=== PATIENT | male | born 1945 | race Caucasian/White ===

== ENCOUNTER 2020-10-14 15:02 | Inpatient (IN) | payer OTHER ==
[~2020-10-14] VITALS: Ht 180.3 cm; Wt 102.6 kg
[~2020-10-14 15:02] MED LIST: DOXY100 PO; METO50ER PO; METR59TL TOP; VALSARTAN-HCTZ1 EAC3 PO
[2020-10-14 15:47] LABS: BASOPHILS ABSOLUTE AUTO 0.01 K/mm3 (0.00-0.23); BASOPHILS PERCENT AUTO 0 % (0-2); EOSINOPHILS PERCENT AUTO 0 % (0-6); Hematocrit 43.5 % (37.0-53.0); Hemoglobin 14.8 g/dL (13.5-17.5); IMMATURE GRAN ABSOLUTE AUTO 0.05 K/mm3 (0.00-0.10); IMMATURE GRAN PERCENT AUTO 1 % (0-1); LYMPHOCYTES ABSOLUTE AUTO 0.73 K/mm3 (0.84-5.20); LYMPHOCYTES PERCENT AUTO 10 % (21-46); MONOCYTES ABSOLUTE AUTO 0.27 K/mm3 (0.16-1.47); MONOCYTES PERCENT AUTO 4 % (4-13); Mean Corpuscular HGB 29.5 pg (26.0-34.0); Mean Corpuscular Volume 87 fL (80-100); Mean Platelet Volume 11.2 fL (9.1-12.4); NEUTROPHILS ABSOLUTE AUTO 6.28 K/mm3 (1.96-9.15); NEUTROPHILS PERCENT AUTO 86 % (41-73); Platelet Count 144 K/mm3 (150-400); RDW Coefficient Variation 13.7 % (11.7-14.2); RDW Standard Deviation 43.6 fL (35.1-46.3); Red Blood Cell Count 5.01 M/mm3 (4.30-5.90); White Blood Cell Count 7.34 K/mm3 (4.00-11.30)
[2020-10-14 15:57] LABS: Alanine Aminotransfer (ALT/SGP 211 U/L (12-78); Albumin, Blood 2.7 g/dL (3.4-5.0); Albumin/Globulin Ratio 0.6 (0.8-1.8); Alk Phos 43 U/L (50-136); Anion Gap 10 mmol/L (6-16); Aspartate Aminotrans (AST/SGOT 768 U/L (12-37); Bilirubin, Total 0.7 mg/dL (0.1-1.0); Blood Urea Nitrogen 17 mg/dL (8-24); Bun/Creatinine Ratio 14.8 (12.0-20.0); CO2, Blood 25 mmol/L (21-32); Calcium, Blood 8.1 mg/dL (8.5-10.1); Chloride, Blood 106 mmol/L (98-108); Creatinine, Blood 1.15 mg/dL (0.60-1.20); Globulin, Blood 4.4 g/dL (2.2-4.0); Glomerular Filtration Rate >60 (60-); Glucose, Blood 117 mg/dL (70-99); Potassium, Blood 3.3 mmol/L (3.5-5.5); Sodium, Blood 141 mmol/L (136-145); Total Protein, Blood 7.1 g/dL (6.4-8.2)
[2020-10-14] MEDS ORDERED: ATOR40TA PO (16:26)
[2020-10-14] MEDS ORDERED: TAMSULOSIN HCL0.4 M1 PO (16:27)
[2020-10-14] MEDS ORDERED: METFORMIN HCL500 M3 PO (16:28)
[2020-10-14] MEDS ORDERED: INSUGL100V SC (16:28)
[2020-10-14] MEDS ORDERED: ALLO300 PO (16:28)
[2020-10-14] MEDS ORDERED: LOSARTAN POTAS100 MG PO (16:29)
[2020-10-14] MEDS ORDERED: MONT10T PO (16:30)
[2020-10-14] MEDS ORDERED: ACTOS30 MG PO (16:31)
[2020-10-14] MEDS ORDERED: AMLODIPINE BES2.5 MG PO (16:33)
[2020-10-14] MEDS ORDERED: METFORMIN HCL500 MG PO (17:06)
[2020-10-14] MEDS ORDERED: METO100ER PO (17:15)
[2020-10-14] MEDS ORDERED: Multivitamin1 EAC1 PO (17:16)
[2020-10-14] MEDS ORDERED: ZYRTEC10 M2 PO (17:16)
[2020-10-14] MEDS ORDERED: Calcium Carbon500 MG PO (17:17)
[2020-10-14] MEDS ORDERED: POTASSIUM PO (17:21)
--- NOTE | 2020-10-15 04:24 | NUR ---
SHIFT SUMMARY- PT. NEW ADMIT FROM ED. COVID POS. A&O, VERY WEAK, ON BEDREST AT THIS TIME. PT. ON 3L NC, 2L IS BASELINE. PT. WITH FEVER, ELEVATED HR, AND TACHYPNEIC UPON ARRIVAL TO FLOOR WITH SOME IMPROVMENT T/O THE NIGHT. TYLENOL GIVEN IN ED AND SCHEDULED MEDS GIVEN ON THIS UNIT PER EMAR WITH GOOD EFFECT, TOLERATED WELL. NO COMPLAINTS OF PAIN DURING THE NIGHT. INCONT, ATTENDS IN PLACE. PT. DENIES NEEDS. RESTING QUIETLY IN BED. CALL LIGHT WITHIN REACH AND SIDE RAILS UPX2. WILL CONT TO MONITOR.
[2020-10-15 05:29] LABS: BASOPHILS ABSOLUTE AUTO 0.01 K/mm3 (0.00-0.23); BASOPHILS PERCENT AUTO 0 % (0-2); EOSINOPHILS PERCENT AUTO 0 % (0-6); Hematocrit 45.5 % (37.0-53.0); Hemoglobin 15.5 g/dL (13.5-17.5); IMMATURE GRAN ABSOLUTE AUTO 0.05 K/mm3 (0.00-0.10); IMMATURE GRAN PERCENT AUTO 1 % (0-1); LYMPHOCYTES ABSOLUTE AUTO 0.79 K/mm3 (0.84-5.20); LYMPHOCYTES PERCENT AUTO 11 % (21-46); MONOCYTES ABSOLUTE AUTO 0.29 K/mm3 (0.16-1.47); MONOCYTES PERCENT AUTO 4 % (4-13); Mean Corpuscular HGB 29.9 pg (26.0-34.0); Mean Corpuscular HGB Conc 34.1 g/dL (31.5-36.5); Mean Corpuscular Volume 88 fL (80-100); Mean Platelet Volume 10.8 fL (9.1-12.4); NEUTROPHILS ABSOLUTE AUTO 6.13 K/mm3 (1.96-9.15); NEUTROPHILS PERCENT AUTO 84 % (41-73); Platelet Count 142 K/mm3 (150-400); RDW Coefficient Variation 13.7 % (11.7-14.2); RDW Standard Deviation 44.3 fL (35.1-46.3); Red Blood Cell Count 5.18 M/mm3 (4.30-5.90); White Blood Cell Count 7.27 K/mm3 (4.00-11.30)
[2020-10-15 06:02] LABS: Anion Gap 10 mmol/L (6-16); Blood Urea Nitrogen 16 mg/dL (8-24); Bun/Creatinine Ratio 12.9 (12.0-20.0); CO2, Blood 26 mmol/L (21-32); Calcium, Blood 8.5 mg/dL (8.5-10.1); Chloride, Blood 105 mmol/L (98-108); Creatinine, Blood 1.24 mg/dL (0.60-1.20); Glomerular Filtration Rate >60 (60-); Glucose, Blood 74 mg/dL (70-99); Magnesium, Blood 2.2 mg/dL (1.6-2.4); Potassium, Blood 3.1 mmol/L (3.5-5.5); Sodium, Blood 141 mmol/L (136-145)
--- NOTE | 2020-10-15 16:31 | NUR ---
PTS O2 SATS THIS AFTERNOON THE PTS O2 SATS AFTER GETTING UP TO THE BATHROOM DROPPED INTO THE LOW 80% ON 4.5L/MIN O2, AFTER RESTING THE PTS O2 BRIEFLY CAME BACK UP TO 89% RECHECKED APROX 1/2 HOUR LATER THE PT WAS BACK DOWN TO 83% ON 3L/MIN, THE PTS O2 WAS ADJUSTED UP SLOWLY TO 7L/MIN PTS O2 SATS UP TO 88%, THE PT WAS INSTRUCTED TO LAY ON HIS SIDE HIS O2 SATS REMAINED 88-90%, A CALL WAS MADE TO DR. JUAREZ AN ORDER TO TRANSFER THE PT TO ICU WAS GIVEN, CHARGE NURSE CHING WAS NOTIFIED OF THE TRANSFER ORDER
--- NOTE | 2020-10-15 17:16 | NUR ---
PTS O2 SAT'S RECOMMENDED BY THE RT SHARON AND DRAWING IN MACHINE TENDER THE PT WAS PUT IN THE PRONE POSITION HE COULD TOLERATE, HIS O2 SAT'S THEN IMPROVED AND O2 WAS TURNED DOWN TO 4L/MIN THE PTS O2 SAT'S ARE STEADY SO FAR @ 90-92%,
--- NOTE | 2020-10-15 17:44 | NUR ---
PT IS A/OX3, PLEASANT AND COOPERATIVE, THE PT AFTER LYING PRONE O2 SATS STAYED IN THE LOW 90'S DR. JUAREZ CANCELED TRANSFER TO ICU AT THIS TIME. THE PT IS UP IN BED FOR DINNER SUPINE O2 SATS AGAIN DROPPED TO 85 % O2 WAS TURNED UP TO 6L/MIN WHILE THE PT IS EATING DINNER, THE PT REPORTED SOME MILD CHEST PAIN WITH DEEP BREATHS, OTHERWISE DENIES PAIN, THE PT WAS PLACED ON CONTINUOS BIOX AT THIS TIME, PT IS A 1 PERSON ASSIST TRANSFER TO THE BATHROOM, CALL LIGHT IN REACH, WILL CONTINUE TO MONITOR AND ASSESS FOR CHANGES
--- NOTE | 2020-10-16 01:28 | NUR ---
PT OXYGEN NEEDS HAVE BEEN INCREASING DURING THE NIGHT. AT START OF SHIFT, PT WAS ON 7L AND SATTING 84%. HE WAS INCREASED TO 10L, CHANGED TO A HIGH FLOW NASAL CANNULA, AND INCREASED TO 89-90%. WHEN PT WAS UNABLE TO MAINTAIN SATS > 88%, HE WAS INCREASED TO 13L. AT 0000, WHEN PT MAINTAINED AT 87%, HE WAS AGAIN INCREASED TO 15L VIA HIGH FLOW NC. AT 0115, PT WAS PUT ON AN AIRVO AT 40L AND 93% FIO2, CURRENTLY SATTING 90-91%. WILL CONTINUE TO MONITOR.
--- NOTE | 2020-10-16 05:39 | NUR ---
TRANSFER TO ICU PT CONTINUED TO DESAT ON AIRVO. RT INCREASED TO 60L AND 94% FIO2, PT SUSTAINING BETWEEN 86-87%. HOSPITALIST DR MOTT INFORMED, AND DECIDED TO TRANSFER PT TO ICU FOR A V60 BIPAP. PT WAS INFORMED AND AGREED. REPORT GIVEN TO TYREE BOB, IN ICU. PT TRANSFERED TO ICU 06.
--- NOTE | 2020-10-16 07:45 | NUR ---
ASSUMED CARE: PT RESTING QUIETLY AT THIS TIME, ON CPAP WITH PRESSURE AT 8 AND 55% FIO2. NSR IN 70S AT THIS TIME. NO ACUTE NEEDS OR CONCERNS.
--- NOTE | 2020-10-16 07:49 | NUR ---
PT TO ICU 6 VIA [facility] WITH MEDICAL FLOOR RN AND FANCY PACKER @ APPROX 0530. PT ON 15L PER NRB, A&O x4, PLACED ON CPAP PRESSURE OF 8 AND FIO2 100% UPON ARRIVAL TO UNIT. MONITOR SHOWS SINUS RHYTHM WITH HR 70'S, HYPERTENSIVE WITH SBP 140'S-150'S. PT REPORTS INCONTINENCE OF BOWEL AND BLADDER, ATTENDS IN PLACE. PT TOLERATES BREIF BREAK FROM CPAP FOR SIPS OF WATER. CALL LIGHT WITHIN REACH.
--- NOTE | 2020-10-16 10:13 | NUR ---
PT FINISHED BREAKFAST AND BEGAN TO DESAT INTO 80S AND WAS NOT ABLE TO RECOVER. WAS ON BREAK FOR AN HOUR. CPAP REPLACED WITH PRESSURE AT 8 AND FIO2 AT 55%. BEDBATH COMPLETED WITH CPAP IN PLACE. ATTEMPTED 2ND IV START TO LEFT HAND WITH NO SUCCESS. WILL MAINTAIN CURRENT IV AT THIS TIME.
--- NOTE | 2020-10-16 18:23 | NUR ---
SHIFT SUMMARY: PT HAS BEEN ON AIRVO MOST OF THE SHIFT. DANGLING AT THIS TIME, TRIPOD ABLE WITH IMPROVEMENT NOTED IN FIO2 ON AIRVO. PT CURRENTLY 60L AND 74% FIO2. THIS EVENING, PT BECAME HYPERTENSIVE WITH GRADUAL INCREASE IN BP. CALL TO DR BLACKMAN AND RECIEVED ONE TIME ANTIHYPERTENSIVE ORDERS. NO FURTHER NEEDS OR CONCERNS AT THIS TIME.
--- NOTE | 2020-10-16 21:00 | NUR ---
ASSUMPTION OF CARE PT RESTING IN BED, ORIENTED x4, ON AIRVO 60L AND FIO2 75% TO MAINTAIN O2 SATURATIONS> 90%. MONITOR SHOWS SINIUS RHYTHM, PT HYPERTENSIVE, BP MEDICATIONS ADMINISTERED ON PREVIOUS SHIFT, WILL MONITOR FOR NEED FOR ADDITIONAL INTERVENTIONS. PT TOLERATING PO INTAKE, SWALLOWS PILLS WHOLE WITH WATER, USES URINAL AT BEDSIDE INDEPENDENTLY. ATTENDS IN PLACE. CALL LIGHT WITHIN REACH, PT USING APPROPRIATELY.
--- NOTE | 2020-10-17 06:31 | NUR ---
SHIFT SUMMARY NO ACUTE CHANGES THIS SHIFT. PT SLEPT T/O MOST OF NIGHT, REMAINS AROUSABLE TO VERBAL STIMULI, ORIENTED x4. ON AIRVO 60L AND FIO2 95% WHILE AWAKE AND TOLERATES CPAP 8 FIO2 90-100% WHILE SLEEPING TO MAINTAIN O2 SATURATIONS> 90%. MONITOR SHOWS SINUS RHYTHM HR 70'S-80'S, PT HYPERTENSIVE WITH SBP 140'S-150'S. PT VOIDS INDEPENDENTLY WITH URNIAL AT BEDSIDE. TWO LARGE LOOSE TO LIQUID BM THIS SHIFT. PT TOLERATING PO INTAKE. CALL LIGHT WITHIN REACH, PT USING APPROPRIATELY.
--- NOTE | 2020-10-17 07:30 | NUR ---
ASSUMED CARE: PT SITTING UPRIGHT IN CHAIR, AIRVO IN PLACE AT 60L AND 100% FIO2. RT AT BEDSIDE AT THIS TIME. NO ACUTE NEEDS OR DISTRESS AT THIS TIME.
--- NOTE | 2020-10-17 08:30 | NUR ---
PT SITTING UPRIGHT IN CHAIR AT THIS TIME. AIRVO IN PLACE. PT DID NOT WANT TO STAY IN CHAIR ANYMORE BECAUSE HE SAID IT HURT HIS NECK SO HE GOT HIMSELF BACK TO BED. RN ENTERED ROOM WITH BREAKFAST AND MADE PT DANGLE. PT AGREEABLE TO THIS. EATING BREAKFAST AT THIS TIME.
--- NOTE | 2020-10-17 10:30 | NUR ---
PT TRIPODED AFTER BREAKFAST AND AIRVO WAS TITRATED DOWN TO 61% FIO2. TOLERATING WELL WITH SATS IN LOW 90S.
--- NOTE | 2020-10-17 12:30 | NUR ---
PT FINISHED LUNCH AND WAS ASKED TO TRIPOD. FIO2 TITRATED DOWN TO 49%. PT TOLERATING WELL WITH SATS LOW 90S
--- NOTE | 2020-10-17 14:30 | NUR ---
PT LAYED DOWN IN BED WITH DESATURATION OCCURING IN MID 80S WHILE ON BACK. HE RECOVERED AFTER SEVERAL MINUTES WITH SATURATIONS BACK IN THE LOW 90S.
--- NOTE | 2020-10-17 15:19 | NUR ---
DISCUSSED PT'S CASE WITH DR HERRING. ONLY WISHES FOR PULM CONSULT IF PT DECLINES AT THIS TIME. PT TOLERATING AIRVO AT 49%. OT IN ROOM WITH PT AT THIS TIME. NO ACUTE NEEDS OR CONCERNS.
--- NOTE | 2020-10-17 18:49 | NUR ---
SHIFT SUMMARY: PT CURRENTLY SATTING HIGH 80S ON 60L AIRVO WITH 61% FIO2. WORKED WITH PT/OT TODAY AND TOLERATED ACTIVITY. ONLY NEEDED CPAP WHEN HE SAID AIRVO WAS IRRITATING HIS NOSE. PLAN TO CONTINUE TITRATING O2 ABLE. NO FURTHER NEEDS OR CONCERNS AT THIS TIME.
--- NOTE | 2020-10-17 19:30 | NUR ---
ASSUMED CARE PT AWAKE AND ALERT. ON AIRVO 60L AND FIO2 65%. LUNG SOUNDS CLEAR BUT DIMINISHED IN BASES. DENIES PAIN OR DISCOMFORT. USING URINAL AT BEDSIDE INDEPENDENTLY. RESPOSITIONS INDEPENDENTLY.
--- NOTE | 2020-10-17 20:00 | NUR ---
PT ENCOURAGED TO PRONE AND REFUSES. PT ASSISTED TO TRIPOD. PT. ABLE TO REPOSITION SELF WITH MINIMAL ASSISTANCE. EXERTIONAL SOB NOTED AND PT. SPO2 DECREASED TO 83% UPON EXERTION. INCREASED TO 93% UPON TRIPOD.
--- NOTE | 2020-10-17 20:20 | NUR ---
ASSISTED PT BACK TO BED, HOB ELEVATED, PT SPO2 DECREASED TO 84% UPON EXERTION, REQUIRES SEVERAL MINUTES IN BAED AFTER EXERTION TO INCREASE SPO2> 90%.
[2020-10-18 04:53] LABS: BASOPHILS ABSOLUTE AUTO 0.01 K/mm3 (0.00-0.23); BASOPHILS PERCENT AUTO 0 % (0-2); EOSINOPHILS PERCENT AUTO 0 % (0-6); Hematocrit 40.5 % (37.0-53.0); Hemoglobin 13.6 g/dL (13.5-17.5); IMMATURE GRAN ABSOLUTE AUTO 0.03 K/mm3 (0.00-0.10); IMMATURE GRAN PERCENT AUTO 1 % (0-1); LYMPHOCYTES ABSOLUTE AUTO 0.73 K/mm3 (0.84-5.20); LYMPHOCYTES PERCENT AUTO 11 % (21-46); MONOCYTES ABSOLUTE AUTO 0.37 K/mm3 (0.16-1.47); MONOCYTES PERCENT AUTO 6 % (4-13); Mean Corpuscular HGB 29.4 pg (26.0-34.0); Mean Corpuscular HGB Conc 33.6 g/dL (31.5-36.5); Mean Corpuscular Volume 88 fL (80-100); Mean Platelet Volume 10.9 fL (9.1-12.4); NEUTROPHILS ABSOLUTE AUTO 5.34 K/mm3 (1.96-9.15); NEUTROPHILS PERCENT AUTO 82 % (41-73); Platelet Count 169 K/mm3 (150-400); RDW Coefficient Variation 13.1 % (11.7-14.2); RDW Standard Deviation 41.9 fL (35.1-46.3); Red Blood Cell Count 4.63 M/mm3 (4.30-5.90); White Blood Cell Count 6.48 K/mm3 (4.00-11.30)
[2020-10-18 05:48] LABS: Alanine Aminotransfer (ALT/SGP 245 U/L (12-78); Albumin, Blood 2.3 g/dL (3.4-5.0); Albumin/Globulin Ratio 0.6 (0.8-1.8); Alk Phos 57 U/L (50-136); Anion Gap 6 mmol/L (6-16); Aspartate Aminotrans (AST/SGOT 287 U/L (12-37); Bilirubin, Total 0.6 mg/dL (0.1-1.0); Blood Urea Nitrogen 24 mg/dL (8-24); Bun/Creatinine Ratio 25.5 (12.0-20.0); CO2, Blood 28 mmol/L (21-32); Calcium, Blood 8.1 mg/dL (8.5-10.1); Chloride, Blood 106 mmol/L (98-108); Creatinine, Blood 0.94 mg/dL (0.60-1.20); Globulin, Blood 3.9 g/dL (2.2-4.0); Glomerular Filtration Rate >60 (60-); Glucose, Blood 142 mg/dL (70-99); Potassium, Blood 3.7 mmol/L (3.5-5.5); Sodium, Blood 140 mmol/L (136-145); Total Protein, Blood 6.2 g/dL (6.4-8.2)
--- NOTE | 2020-10-18 05:51 | NUR ---
SHIFT SUMMARY PT A&OX4, REMAINS ON HIGH FLOW N/C. 60 L AND INCREASED TO 78% FIO2 TO MAINTAIN SPO2 > 90%. PT UP TO COMMODE WITH ASSIST DURING SHIFT AND SPO2 DECREASED TO 83%. WORK OF BREATHING INCREASED SLIGHTLY. PT. BACK TO BED AND AFTER SEVERAL MINUTES ABLE TO MAINTAIN SPO2 > 90%. PT STATES HE FEELS HIS BREATHING IS BETTER AND FEELS IF HE CAN TAKE DEEPER BREATHS WITH LESS EFFORT. PT CONTINUES TO INDEPENDENTLY USE URINAL AT BEDSIDE.
--- NOTE | 2020-10-18 08:00 | NUR ---
REPORT TAKEN FROM TYREE BOLES. ASSUMED CARE @ 0700. PT LAYING IN SEMI-FOWLERs IN BED. C-PAP IN PLACE @ SHIFT CHANGE. PT CHANGED TO AIRVO BY RT @ 60L 79%. PT A&O X3, ABLE TO FOLLOW DIRECTIONS, PT ABLE TO ASSIST W/ ADLs. STANDING & TRANSFERRING. USING URINAL. INDEPENDENT W/ MEALS. ABLE TO SHIFT HIPS & REPOSITION IN BED. PT SPEAKING IN FULL SENTENCES. LS CLEAR THROUGHOUT. PRODUCTIVE COUGH W/ WHITE SPUTUM. PT DESATS W/ MINIMAL EXERTION, SATS DEC TO LOW 80s, NO INC WORK OF BREATHING. PT RECOVERS IN LESS THAN 5 MIN. O2 SATS MID 90s. BP STABLE. SINUS RHYTHM, HR 80s. PT UP TO CHAIR W/ STANDBY ASSIST. PLAN FOR PT, OT TODAY. WILL CONTINUE TO ENCOURAGE ACTIVITY TOLERATED.
--- NOTE | 2020-10-18 17:08 | NUR ---
SHIFT SUMMARY: PT LAYING SUPINE. CPAP IN PLACE @ 8/70%. PT HAS BEEN ALTERNATING W/ AIRVO @60L & 79% FiO2. PT TOLERATES BOTH WELL. LS CONTINUE TO BE CLEAR THROUGHOUT. PRODUCTIVE COUGH W/ WHITE SPUTUM. CONTINUES TO DESAT W/ EXERTION. RECOVERS WELL. PT WORKED W/ PT TODAY, UP TO CHAIR FOR APPROX 3HRS. TOLERATED WELL. VS STABLE. WILL CONTINUE TO MONITOR UNTIL REPORT TO ONCOMING RN.
[2020-10-19 04:35] LABS: BASOPHILS ABSOLUTE AUTO 0.01 K/mm3 (0.00-0.23); BASOPHILS PERCENT AUTO 0 % (0-2); EOSINOPHILS PERCENT AUTO 0 % (0-6); Hematocrit 41.3 % (37.0-53.0); Hemoglobin 14.1 g/dL (13.5-17.5); IMMATURE GRAN ABSOLUTE AUTO 0.06 K/mm3 (0.00-0.10); IMMATURE GRAN PERCENT AUTO 1 % (0-1); LYMPHOCYTES ABSOLUTE AUTO 0.92 K/mm3 (0.84-5.20); LYMPHOCYTES PERCENT AUTO 9 % (21-46); MONOCYTES ABSOLUTE AUTO 0.32 K/mm3 (0.16-1.47); MONOCYTES PERCENT AUTO 3 % (4-13); Mean Corpuscular HGB 29.6 pg (26.0-34.0); Mean Corpuscular HGB Conc 34.1 g/dL (31.5-36.5); Mean Corpuscular Volume 87 fL (80-100); Mean Platelet Volume 10.6 fL (9.1-12.4); NEUTROPHILS ABSOLUTE AUTO 8.52 K/mm3 (1.96-9.15); NEUTROPHILS PERCENT AUTO 87 % (41-73); Platelet Count 184 K/mm3 (150-400); RDW Coefficient Variation 12.8 % (11.7-14.2); RDW Standard Deviation 40.8 fL (35.1-46.3); Red Blood Cell Count 4.77 M/mm3 (4.30-5.90); White Blood Cell Count 9.83 K/mm3 (4.00-11.30)
[2020-10-19 04:55] LABS: Alanine Aminotransfer (ALT/SGP 253 U/L (12-78); Albumin, Blood 2.4 g/dL (3.4-5.0); Albumin/Globulin Ratio 0.6 (0.8-1.8); Alk Phos 63 U/L (50-136); Anion Gap 5 mmol/L (6-16); Aspartate Aminotrans (AST/SGOT 196 U/L (12-37); Bilirubin, Total 0.6 mg/dL (0.1-1.0); Blood Urea Nitrogen 23 mg/dL (8-24); Bun/Creatinine Ratio 26.2 (12.0-20.0); CO2, Blood 29 mmol/L (21-32); Calcium, Blood 8.2 mg/dL (8.5-10.1); Chloride, Blood 106 mmol/L (98-108); Creatinine, Blood 0.88 mg/dL (0.60-1.20); Globulin, Blood 4.1 g/dL (2.2-4.0); Glomerular Filtration Rate >60 (60-); Glucose, Blood 115 mg/dL (70-99); Potassium, Blood 3.6 mmol/L (3.5-5.5); Sodium, Blood 140 mmol/L (136-145); Total Protein, Blood 6.5 g/dL (6.4-8.2)
--- NOTE | 2020-10-19 07:14 | NUR ---
SHIFT SUMMARY NO ACUTE CHANGES THIS SHIFT, PT RESTED WELL T/O NIGHT, AROUSES TO VERBAL STIMULI AND ORIENTED x4. ON AIRVO 60L, FIO2 INCREASED TO 90% WHILE SLEEPING TO MAINTAIN OXYGEN SATURATIONS> 90%. MONITOR SHOWS SINUS RHYTHM, HR 60'S-70'S, HYPERTENSION NOTED WITH SBP 150'S-160'S. PT TOLERATES PO INTAKE, SWALLOWS PILLS WHOLE WITH WATER, VOIDS IN URINAL AT BEDSIDE INDEPENDENTLY. NO BM THIS SHIFT. PT REPOSITIONS SELF IN BED AND USES BED CONTROLS INDEPENDENTLY. CALL LIGHT WITHIN REACH, PT USING APPROPRIATELY.
--- NOTE | 2020-10-19 08:29 | NUR ---
CARE ASSUMED CARE AND REPORT ASSUMED FROM PAULINO CLEMENTS. PT SLEEPING UPON ENTRY INTO ROOM, BUT EASILY AWAKENS. IS ABLE TO SIT UP AND MOVE HIMSELF TO THE SIDE OF THE BED WITHOUT ANY ASSISTANCE. LUNG SOUNDS CLEAR THROUGHOUT BUT DIMINISHED. HE IS A/O X 3, CALM AND COOPERATIVE. AFEBRILE THIS MORNING. NSR, HR 70S. BP ELEVATED THIS AM WITH SBP 160S; MEDICATIONS GIVEN. AIRVO 60L, 90% WITH SPO2 89-93%. VOIDS IN URINAL WITH NO ASSISTANCE. TKO BAGS CHANGED; ANBX NOW INFUSING. EATING BREAKFAST AT THIS TIME. WILL CONTINUE TO MONITOR.
--- NOTE | 2020-10-19 13:22 | NUR ---
REASSESSMENT PT AWAKENED FOR LUNCH. REMINDED HIM THE IMPORTANCE OF SITTING UPRIGHT OR LYING ON HIS STOMACH IN ORDER TO IMPROVE LUNG PERFUSION. WITH 1 ASSIST AND USE OF WALKER, PT WAS ABLE TO STAND AND AMBULATE INTO RECLINER CHAIR. HE IS CURRENTLY SITTING UPRIGHT EATING LUNCH. REMAINS OF AIRVO 60L, 90%. REMAINS IN NSR, HR 60S. AFEBRILE. WILL CONTINUE TO MONITOR.
--- NOTE | 2020-10-19 16:19 | NUR ---
REASSESSMENT PT SAT UP IN CHAIR FOR FEW HOURS. DID RECEIVE COMPLETE BEDBATH, FACIAL SHAVE, ORAL CARE, AND LINEN CHANGE. WORKED WITH PHYSICAL THERAPY AND WAS ABLE TO AMBULATE AROUND ROOM WITHOUT SIGNICIANTLY DESATURATING. WHILE SITTING UP, HE WAS ABLE TO TOLERATE TRIPOD POSITION OVER THE TRAY. AFEBRILE. CONTINUES TO TOLERATE AIRVO 60L, 75-58% FIO2. NSR, HR 60S. PT IS NOW BACK IN BED AND REQUESTING TO TAKE A NAP BEFORE DINNER. WILL CONTINUE TO MONITOR.
--- NOTE | 2020-10-19 18:03 | NUR ---
SHIFT SUMMARY PT HAD BUSY DAY TODAY, WORKED WITH OCCUPATIONAL AND PHYSICAL THERAPY, AND AMBULATED AROUND ROOM MULTIPLE TIMES. WAS UP TO CHAIR AND DANGLED ON SIDE OF BED. RECIEVED COMPLETE BEDBATH AND ASSISTED WITH CARE. DURING ACTIVITY, PT DESATURATED TO AROUND 85% AND QUICKLY IMPROVED HIS SATURATION AND SOB. ATE MAJORITY OF ALL THREE MEALS TODAY. HAS BEEN AFEBRILE ENTIRE SHIFT. VOIDS IN URINAL WITH NO ASSIST. HAS REMAINED IN NSR, HR 70-80S. AIRVO CURRENTLY 60L, 77%. WILL GIVE BEDSIDE, HANDOFF REPORT TO NOC RN.
--- NOTE | 2020-10-19 22:00 | NUR ---
ASSUMPTION OF CARE PT RESTING IN BED, AROUSES TO VERBAL STIMULI, ORIENTED TO SELF, DATE/TIME, LOCATION, EVENT AND FOLLOWING DIRECTIONS. ON AIRVO 60L AND FIO2 77% TO MAINTAIN OXYGEN SATURATIONS> 90%. PT TOLERATING PO INTAKE, VOIDING IN URINAL AT BEDSIDE INDEPENDENTLY. REDNESS NOTED TO PTS REED AREA/UPPER THIGHS, ORANGE CREAM APPLIED TO SKIN. PT POSITIONS SELF AND USES BED CONTROLS INDEPENDENTLY, CALL LIGHT WITHIN REACH, PT USING APPROPRIATELY.
[2020-10-20 06:33] LABS: BASOPHILS ABSOLUTE AUTO 0.02 K/mm3 (0.00-0.23); BASOPHILS PERCENT AUTO 0 % (0-2); EOSINOPHILS PERCENT AUTO 0 % (0-6); Hematocrit 40.3 % (37.0-53.0); Hemoglobin 13.6 g/dL (13.5-17.5); IMMATURE GRAN ABSOLUTE AUTO 0.13 K/mm3 (0.00-0.10); IMMATURE GRAN PERCENT AUTO 1 % (0-1); LYMPHOCYTES ABSOLUTE AUTO 0.46 K/mm3 (0.84-5.20); LYMPHOCYTES PERCENT AUTO 4 % (21-46); MONOCYTES ABSOLUTE AUTO 0.22 K/mm3 (0.16-1.47); MONOCYTES PERCENT AUTO 2 % (4-13); Mean Corpuscular HGB 28.9 pg (26.0-34.0); Mean Corpuscular HGB Conc 33.7 g/dL (31.5-36.5); Mean Corpuscular Volume 86 fL (80-100); Mean Platelet Volume 10.9 fL (9.1-12.4); NEUTROPHILS PERCENT AUTO 93 % (41-73); Platelet Count 200 K/mm3 (150-400); RDW Coefficient Variation 12.5 % (11.7-14.2); RDW Standard Deviation 39.2 fL (35.1-46.3); Red Blood Cell Count 4.71 M/mm3 (4.30-5.90); White Blood Cell Count 11.53 K/mm3 (4.00-11.30)
[2020-10-20 06:47] LABS: Alanine Aminotransfer (ALT/SGP 195 U/L (12-78); Albumin, Blood 2.2 g/dL (3.4-5.0); Albumin/Globulin Ratio 0.5 (0.8-1.8); Alk Phos 67 U/L (50-136); Anion Gap 6 mmol/L (6-16); Aspartate Aminotrans (AST/SGOT 103 U/L (12-37); Bilirubin, Total 0.7 mg/dL (0.1-1.0); Blood Urea Nitrogen 23 mg/dL (8-24); Bun/Creatinine Ratio 28.1 (12.0-20.0); CO2, Blood 25 mmol/L (21-32); Calcium, Blood 8.3 mg/dL (8.5-10.1); Chloride, Blood 107 mmol/L (98-108); Creatinine, Blood 0.82 mg/dL (0.60-1.20); Globulin, Blood 4.2 g/dL (2.2-4.0); Glomerular Filtration Rate >60 (60-); Glucose, Blood 181 mg/dL (70-99); Potassium, Blood 3.8 mmol/L (3.5-5.5); Sodium, Blood 138 mmol/L (136-145); Total Protein, Blood 6.4 g/dL (6.4-8.2)
--- NOTE | 2020-10-20 06:49 | NUR ---
SHIFT SUMMARY NO ACUTE CHANGES THIS SHIFT. PT REMAINS ON ARIVO AT 60L AND FIO2 75%, SLIGHT O2 DESATURATIONS TO 83% WITH ACTIVITY, PT HAS QUICK RECOVERY WITHOUT INCREASING FIO2 SETTINGS. MONITOR SHOWS NSR, STABLE BP. PT REMAINS AFEBRILE T/O SHIFT. NO GI/ ISSUES. CALL LIGHT WITHIN REACH, PT USING APPROPRIATELY.
--- NOTE | 2020-10-20 08:25 | NUR ---
INITIAL ASSESSMENT PATIENT ALERT AND ORIENTED X 4, AFEBRILE. PATIENT SLIGHTLY WEAK. PATIENT ABLE TO AMBULATE WITH 1 PERSON ASSIST AND HAS BEEN REPOSITIONING SELF IN BED. PATIENT SATTING 90% AND GREATER ON AIRVO 60 L AND 78% FIO2. LUNGS CLEAR THROUGHOUT; DIMINISHED IN LOWER LOBES. PATIENT REPORTS OCCASIONAL COUGH. PATIENT STATES HE IS COUGHING UP SMALL AMOUNT OF THICK, BROWN SPUTUM. PATIENT SOB WITH EXERTION. PATIENT IN SR, HR 60S TO 70S. SBP 160S. SCHEDULED AM BP MEDS WILL BE GIVEN SHORTLY. GI WNL. WNL. PATIENT USING BEDSIDE URINAL INDEPENDENTLY. PATIENT HAS REDDENED AREA TO LEFT REED/ THIGH AREA; CALAZIME CREAM APPLIED. IV FLUSHED AND SALINE LOCKED. BED LOW, CALL LIGHT IN REACH. WILL CONTINUE TO MONITOR PATIENT FREQUENTLY THROUGHOUT SHIFT.
--- NOTE | 2020-10-20 12:00 | NUR ---
PATIENT AFEBRILE. NO COMPLAINTS OF PAIN. FI02 NOW 80%. HR IN THE 60S. SBP IN THE 150S. BLOOD SUGAR OF 252; COVERAGE GIVEN. NO OTHER ACUTE CHANGES TO NOTE ON. WILL CONTINUE TO MONITOR.
--- NOTE | 2020-10-20 16:00 | NUR ---
PATIENT AFEBRILE. HR 60S TO 70S. SBP 140S TO 160S. NO OTHER ACUTE CHANGES TO NOTE ON AT THIS TIME.
--- NOTE | 2020-10-20 18:29 | NUR ---
SHIFT SUMMARY PATIENT HAS REMAINED ALERT AND ORIENTED X 4, AFEBRILE. PATIENT HAS HAD NO COMPLAINTS OF PAIN. PATIENT HAS REMAINED AMBULATING IN ROOM FROM BED TO CHAIR AND BSC. PATIENT HAS BEEN ON AIRVO AT 60 L AND RANGING BETWEEN 70 AND 80% FIO2. PATIENT CURRENTLY ON 70% FIO2. LUNGS HAVE REMAINED CLEAR, DIM IN LOWER LOBES. PATIENT REPORTS OCCASIONAL PRODUCTIVE COUGH; SMALL AMOUNT OF THICK, BROWN SPUTUM. PATIENT SOB WITH EXERTION. PATIENT HAS BEEN USING INCENTIVE SPIROMETER AND FLUTTER VALVE. PATIENT HAS REMAINED IN SR, HR 60S TO 80S. SBP 140S TO 160S. PATIENT TOLERATED CARDIAC DIET WELL AND HAD GOOD APPETITE. PATIENT HAD ONE MEDIUM, SOFT, BROWN BM THIS SHIFT. PATIENT HAD ADEQUATE AMOUNT OF YELLOW COLORED URINE OUT. PATIENT REMAINED USING URINAL INDEPENDENTLY. NO CHANGE TO SKIN. PATIENT HAS BEEN SHIFTING OWN HIPS IN BED. IV REMAINS SALINE LOCKED. BLOOD SUGARS RANGING FROM 162 TO 307; HSS COVERAGE GIVEN AT EACH CHECK. PATIENT APPEARS COMFORTABLE AT THIS TIME. CALL LIGHT IN REACH. WILL BE GIVING REPORT TO ONCOMING VENDING MACHINE FILLER NURSE SHORTLY.
--- NOTE | 2020-10-20 23:17 | NUR ---
ASSUMED PT CARE REPORT FROM SELENE CLEMENTS AT 1900, ASSUMED PT CARE. PT ALERT AND ORIENTED. ON AIRVO AT 60L/70%FI02, SATS >92%. LUNG SOUNDS CLEAR TO UPPER, DIMINISHED TO LOWER. OCC COUGH. PT HR SR 80S. BP WNL. VOIDS PER URINAL. TOLERATES PO, TAKES MEDS WHOLE. ABD SOFT AND NON TENDER. DENIES NAUSEA. DENIES PAIN. MOVES ALL EXTREMITIES INDEPENDENTLY. USES CALL LIGHT. PG TO REGINA , DRESSING C/D/I. CALL [facility] IN REACH. SEE FULL SHIFT ASSESSMENT.
[2020-10-21 03:48] LABS: BASOPHILS ABSOLUTE AUTO 0.03 K/mm3 (0.00-0.23); BASOPHILS PERCENT AUTO 0 % (0-2); EOSINOPHILS PERCENT AUTO 0 % (0-6); Hematocrit 40.3 % (37.0-53.0); Hemoglobin 13.8 g/dL (13.5-17.5); IMMATURE GRAN ABSOLUTE AUTO 0.21 K/mm3 (0.00-0.10); IMMATURE GRAN PERCENT AUTO 2 % (0-1); LYMPHOCYTES ABSOLUTE AUTO 0.54 K/mm3 (0.84-5.20); LYMPHOCYTES PERCENT AUTO 4 % (21-46); MONOCYTES ABSOLUTE AUTO 0.35 K/mm3 (0.16-1.47); MONOCYTES PERCENT AUTO 3 % (4-13); Mean Corpuscular HGB 29.6 pg (26.0-34.0); Mean Corpuscular HGB Conc 34.2 g/dL (31.5-36.5); Mean Corpuscular Volume 87 fL (80-100); Mean Platelet Volume 10.8 fL (9.1-12.4); NEUTROPHILS ABSOLUTE AUTO 12.89 K/mm3 (1.96-9.15); NEUTROPHILS PERCENT AUTO 92 % (41-73); Platelet Count 201 K/mm3 (150-400); RDW Coefficient Variation 12.4 % (11.7-14.2); RDW Standard Deviation 39.7 fL (35.1-46.3); Red Blood Cell Count 4.66 M/mm3 (4.30-5.90); White Blood Cell Count 14.02 K/mm3 (4.00-11.30)
[2020-10-21 04:06] LABS: Alanine Aminotransfer (ALT/SGP 205 U/L (12-78); Albumin, Blood 2.1 g/dL (3.4-5.0); Albumin/Globulin Ratio 0.5 (0.8-1.8); Alk Phos 67 U/L (50-136); Anion Gap 7 mmol/L (6-16); Aspartate Aminotrans (AST/SGOT 104 U/L (12-37); Bilirubin, Total 0.7 mg/dL (0.1-1.0); Blood Urea Nitrogen 23 mg/dL (8-24); Bun/Creatinine Ratio 29.8 (12.0-20.0); CO2, Blood 23 mmol/L (21-32); Calcium, Blood 8.3 mg/dL (8.5-10.1); Chloride, Blood 107 mmol/L (98-108); Creatinine, Blood 0.77 mg/dL (0.60-1.20); Glomerular Filtration Rate >60 (60-); Glucose, Blood 173 mg/dL (70-99); Potassium, Blood 4.1 mmol/L (3.5-5.5); Sodium, Blood 137 mmol/L (136-145); Total Protein, Blood 6.1 g/dL (6.4-8.2)
--- NOTE | 2020-10-21 06:09 | NUR ---
SHIFT SUMMARY PT HAD GOOD SHIFT. REMAINS ALERT AND ORIENTED, PT ON AIRVO 60L/75% FIO2, SATS >92%. PT HAS GOOD PRODUCTIVE COUGH AND IS ABLE TO EXPECTORATE SMALL AMOUNTS OF BROWNISH SPUTUM. PT DENIES CP. GETS SOB WITH ACTIVITIES. HR SR-SB. BP WNL. SKIN C/D/I. PT DRINKS PLENTY OF WATER AND UPO GOOD. PT SLEPT MOST OF THE NIGHT. PT VOIDS PER URINAL. URINE CLEAR YELLOW. ABD SOFT, NONTENDER, PT HAS APPETITE. LUNG SOUNDS CLEAR. SL POWER GLIDE TO RIGHT UPPER ARM THAT DOES NOT DRAW BLOOD. PT APPROPRIATE FOR STATUS CHANGE. CALL LIGHT IN REACH. WILL REPORT TO ONCOMING SHIFT.
--- NOTE | 2020-10-21 10:23 | NUR ---
ASSUMED CARE AT 0700 PT ALERT AND ORIENTED AND ABLE TO MAKE NEEDS KNOWN. O2 SAT >90% ON AIRVO 60L, FIO2 75%. HR 58, BP 169/85. PT HAD ASYMPTOMATIC RUN OF SVT THAT SELF RESOLVED. ANTICIPATE STATUS CHANGE LATER TODAY. SEE SHIFT ASSESSMENT FOR FULL ASSESSMENT.
--- NOTE | 2020-10-21 13:33 | NUR ---
PROVIDER VISIT DR BOURGEOIS IN TO ASSESS PT. NEW MEDICATION ORDERS PROVIDED, STATUS CHANGE TO PCU PROVIDED.
--- NOTE | 2020-10-21 17:45 | NUR ---
END OF SHIFT SUMMARY PT IS ALERT AND ORIENTED AND CAN MAKE NEEDS KNOWN. PT CAN [place] AND IS A STANDBY ASSIST WHEN MOVING TO AND FROM BED. AFIBRILE T/O SHIFT. AIRVO AT 60L WITH FIO2 70%, O2 SAT >90%. PT ABLE TO CLEAR OWN SECREATIONS. HR 60-70'S NSR. SBP 150'S. PT USES URINAL INDEPENDENTLY. WILL REPORT TO PM RN WHEN AVAILABLE.
--- NOTE | 2020-10-21 19:45 | NUR ---
ASSUMED PT CARE REPORT AND ROUNDING WITH SAGAR CLEMENTS AT 1900. ASSUMED PT CARE. PT ALERT AND ORIENTED. WATCHING TV. TOLERATES PO W/O ISSUE. PCU STATUS. BP STABLE, SATS >92% ON AIRVO 60L @ 70% FIO2. PT USES CALL LIGHT APPROPRIATELY. MOVES ALL EXTREMITIES INDEPENDENTLY. STATES HE HAD AN OK DAY. STATES HE IS BORED AND READY TO GET OUT OF HERE. STATES SOB IMPROVED. LUNG SOUNDS CLEAR. PT USES BREATHING DEVICES WELL. PT REPORTS SCANT SPUTUM WITH DEEP BREATHING AND COUGHING. DESCRIBES IT WHITE WITH A LITTLE BROWN. ABD SOFT AND NONTENDER. PT DENIES NAUSEA/PAIN. GUITAR TEACHER SHOWS SR 60S. SKIN C/D/I. PT VOIDS PER URINAL. CALL LIGHT IN REACH. SEE FULL SHIFT ASSESSMENT.
[2020-10-22 03:29] LABS: BASOPHILS ABSOLUTE AUTO 0.01 K/mm3 (0.00-0.23); BASOPHILS PERCENT AUTO 0 % (0-2); EOSINOPHILS PERCENT AUTO 0 % (0-6); Hematocrit 39.1 % (37.0-53.0); Hemoglobin 13.6 g/dL (13.5-17.5); IMMATURE GRAN ABSOLUTE AUTO 0.18 K/mm3 (0.00-0.10); IMMATURE GRAN PERCENT AUTO 1 % (0-1); LYMPHOCYTES ABSOLUTE AUTO 0.49 K/mm3 (0.84-5.20); LYMPHOCYTES PERCENT AUTO 4 % (21-46); MONOCYTES ABSOLUTE AUTO 0.29 K/mm3 (0.16-1.47); MONOCYTES PERCENT AUTO 2 % (4-13); Mean Corpuscular HGB 29.8 pg (26.0-34.0); Mean Corpuscular HGB Conc 34.8 g/dL (31.5-36.5); Mean Corpuscular Volume 86 fL (80-100); Mean Platelet Volume 10.6 fL (9.1-12.4); NEUTROPHILS ABSOLUTE AUTO 12.64 K/mm3 (1.96-9.15); NEUTROPHILS PERCENT AUTO 93 % (41-73); Platelet Count 213 K/mm3 (150-400); RDW Coefficient Variation 12.4 % (11.7-14.2); RDW Standard Deviation 38.6 fL (35.1-46.3); Red Blood Cell Count 4.57 M/mm3 (4.30-5.90); White Blood Cell Count 13.61 K/mm3 (4.00-11.30)
[2020-10-22 03:47] LABS: Alanine Aminotransfer (ALT/SGP 240 U/L (12-78); Albumin, Blood 2.1 g/dL (3.4-5.0); Albumin/Globulin Ratio 0.6 (0.8-1.8); Alk Phos 65 U/L (50-136); Anion Gap 6 mmol/L (6-16); Aspartate Aminotrans (AST/SGOT 98 U/L (12-37); Bilirubin, Total 0.7 mg/dL (0.1-1.0); Blood Urea Nitrogen 27 mg/dL (8-24); Bun/Creatinine Ratio 33.8 (12.0-20.0); CO2, Blood 26 mmol/L (21-32); Chloride, Blood 106 mmol/L (98-108); Globulin, Blood 3.8 g/dL (2.2-4.0); Glomerular Filtration Rate >60 (60-); Glucose, Blood 198 mg/dL (70-99); Potassium, Blood 4.2 mmol/L (3.5-5.5); Sodium, Blood 138 mmol/L (136-145); Total Protein, Blood 5.9 g/dL (6.4-8.2)
--- NOTE | 2020-10-22 05:53 | NUR ---
SHIFT SUMMARY PT HAD WONDERFUL SHIFT. REMAINED ALERT AND ORIENTED. PT REMAINS ON AIRVO @ 60L DOWN TO 60% FIO2 NOW, SATS >92%. PT SLEPT WELL. SKIN INTACT. HR SR 60S. BP STABLE. PT VOIDS PER URINAL. DENIES NAUSEA. USES CALL LIGHT APPROPRIATELY. PT HAS PRODUCTIVE OCCASSIONAL COUGH. CALL LIGHT IN REACH. WILL REPORT TO ONCOMING SHIFT.
--- NOTE | 2020-10-22 08:00 | NUR ---
ASSUMED CARE @ 0700, REPORT FROM TYREE MARIA. PT LAYING SUPINE IN BED. AIRVO @ 60L W/ 54% FiO2. PT A&O X3, FOLLOWS DIRECTIONS. RR EVEN & UNLABORED, LS CLEAR THROUGHOUT. PT ABLE TO GET UP TO CHAIR W/ STANDY BY ASSIST. MILD DYSPNEA NOTED W/ EXERTION, HOWEVER SATS MAINTAINED >90%. NO ASSISTANCE NEED W/ MEALS, REPOSITIONING IN BED OR WHEN URINATING. USES CALL LIGHT APPROPRIATELY, ABLE TO MAKE NEEDS KNOWN. VS STABLE. WILL CONTINUE TO MONITOR & ENCOURAGE ACTIVITY.
--- NOTE | 2020-10-22 18:30 | NUR ---
SHIFT SUMMARY: PT A&OX3. AIRVO @ 60L W/ 54%FiO2. ABLE TO GET UP TO CHAIR W/ SOME DYSPNEA, HOWEVER SATS MAINTAINED >90%. ABLE TO ASSIST W/ ADLs. INDEPENDENT IN ROOM. ASSISTED W/ BED BATH. VS STABLE. PT WORKED W/ PT THIS SHIFT & TOLERATED WELL. WILL CONTINUE TO MONITOR UNTIL REPORT OFF TO ONCOMING RN.
--- NOTE | 2020-10-22 19:30 | NUR ---
ASSUMED PT CARE REPORT RECEIVED FROM FRANCISCA CLEMENTS AT 1855. ASSUMED PT CARE. PT STATES HE HAD A GREAT DAY. ALERT AND ORIENTED. DENIES PAIN. AIRVO @ 60L/50%, SATS >92%. PT TACHYPNEAIC WITH ACTIVITY. PRODUCTIVE COUGH WITH SMALL AMOUNT OF THIN CLEARISH WHITE SPUTUM. PT VOIDS PER URINAL. HR 70S SR PER MONITOR. SBP WNL. AFEBRILE. PT ABD SOFT, NONTENDER, PT DENIES NAUSEA. CALL LIGHT IN REACH. MAKES NEEDS KNOWN. SEE FULL SHIFT ASSESSMENT.
[2020-10-23 03:34] LABS: BASOPHILS ABSOLUTE AUTO 0.04 K/mm3 (0.00-0.23); BASOPHILS PERCENT AUTO 0 % (0-2); EOSINOPHILS ABSOLUTE AUTO 0.01 K/mm3 (0.00-0.68); EOSINOPHILS PERCENT AUTO 0 % (0-6); Hematocrit 41.7 % (37.0-53.0); Hemoglobin 14.3 g/dL (13.5-17.5); IMMATURE GRAN ABSOLUTE AUTO 0.22 K/mm3 (0.00-0.10); IMMATURE GRAN PERCENT AUTO 2 % (0-1); LYMPHOCYTES ABSOLUTE AUTO 0.43 K/mm3 (0.84-5.20); LYMPHOCYTES PERCENT AUTO 3 % (21-46); MONOCYTES ABSOLUTE AUTO 0.38 K/mm3 (0.16-1.47); MONOCYTES PERCENT AUTO 3 % (4-13); Mean Corpuscular HGB 29.2 pg (26.0-34.0); Mean Corpuscular HGB Conc 34.3 g/dL (31.5-36.5); Mean Corpuscular Volume 85 fL (80-100); Mean Platelet Volume 10.7 fL (9.1-12.4); NEUTROPHILS ABSOLUTE AUTO 11.84 K/mm3 (1.96-9.15); NEUTROPHILS PERCENT AUTO 92 % (41-73); Platelet Count 199 K/mm3 (150-400); RDW Coefficient Variation 12.3 % (11.7-14.2); RDW Standard Deviation 38.1 fL (35.1-46.3); Red Blood Cell Count 4.89 M/mm3 (4.30-5.90); White Blood Cell Count 12.92 K/mm3 (4.00-11.30)
[2020-10-23 03:43] LABS: Alanine Aminotransfer (ALT/SGP 233 U/L (12-78); Albumin, Blood 2.1 g/dL (3.4-5.0); Albumin/Globulin Ratio 0.5 (0.8-1.8); Alk Phos 67 U/L (50-136); Anion Gap 6 mmol/L (6-16); Aspartate Aminotrans (AST/SGOT 85 U/L (12-37); Bilirubin, Total 0.8 mg/dL (0.1-1.0); Blood Urea Nitrogen 28 mg/dL (8-24); Bun/Creatinine Ratio 36.2 (12.0-20.0); CO2, Blood 24 mmol/L (21-32); Chloride, Blood 105 mmol/L (98-108); Creatinine, Blood 0.77 mg/dL (0.60-1.20); Globulin, Blood 3.9 g/dL (2.2-4.0); Glomerular Filtration Rate >60 (60-); Glucose, Blood 184 mg/dL (70-99); Potassium, Blood 4.5 mmol/L (3.5-5.5); Sodium, Blood 135 mmol/L (136-145)
--- NOTE | 2020-10-23 06:04 | NUR ---
SHIFT SUMMARY PT DID WELL. REMAINS ALERT AND ORIENTED. REMAINS ON AIRVO @ 60L/45%, SATS > 92%. PT LESS DYSPNEIC WITH ACTIVITY AND RECOVERS QUICKLY. PT ABLE TO WALK TO TOILET FOR BM INDEPENDENTLY. SKIN INTACT. SOME REDNESS STILL TO LEFT THIGH. ORANGE CREAM APPLIED PRN. SBP STABLE 150-170S, HR SB 50S. PT ABD SOFT AND NON TENDER, DENIES NAUSEA. PT VOIDS PER URINAL. COUGH LESS PRODUCTIVE. PT USES BREATHING ADJUNCTS PRN. PT AFEBRILE. CALL LIGHT IN REACH. WILL REPORT TO ONCOMING SHIFT.
--- NOTE | 2020-10-23 09:15 | NUR ---
ASSESSMENT- PT AWAKE, ALERT, COOPERATIVE. UP TO CHAIR WITH ASSIST, TOLERATED WELL. LUNGS CLEAR, ON AERVO. NSR. BP STABLE. DR. BOURGEOIS HERE-UDPATED. NO N/V, NO C/O PAIN. ABLE TO USE CALL LIGHT.
--- NOTE | 2020-10-23 10:27 | NUR ---
PT BACK TO BED NEEDS SOME ASSISTANCE WITH LINES. OXYGEN CHANGED TO 38%, STATES BREATHING OK. DID DECREASE TO 88% WITH ACTIVITY. RECOVERED TO 92% WITH REST. ATE 100% BREAKFAST.
--- NOTE | 2020-10-23 12:18 | NUR ---
GOOD APPETITE. UP TO CHAIR. TOLERATING AERVO BUT C/O SINUS STUFFINESS. TALKATIVE.
--- NOTE | 2020-10-23 17:35 | NUR ---
PT UP IN CHAIR, TOLERATING ACTIVITY WELL. STATES ABLE TO BREATHE EASIER AFTER NASAL SPRAY. EATING WELL. USING INCENTIVE SPIROMETER AND PEP VALVE WITH GOOD EFFORT. POWER GLIDE INTACT. CONTINUE TO MONITOR
--- NOTE | 2020-10-23 20:00 | NUR ---
ASSUMED PT CARE REPORT FROM GUERLINE CLEMENTS AT 1905. ASSUMED PT CARE. PT ALERT AND ORIENTED AND PLEASANT. DENIES PAIN, STATES HE HAD A GOOD DAY. PT ON 50L/38% HFNC, SATS >92%. LUNG SOUNDS CLEAR. PT HAS MINIMAL SPUTUM WITH COUGHING. ABLE TO DO BREATHING EXERCISES INDEPENDENTLY. VSS. HR SR 60S, DENIES CP. SBP WNL. SKIN C/D/I. POWERGLIDE TO RIGHT UPPER ARM THAT IS PATENT WITH NO BLOOD RETURN. CALL LIGHT IN REACH. PT ABLE TO COMMUNICATE ALL NEEDS. CALL LIGHT IN REACH. SEE FULL SHIFT ASSESSMENT.
[2020-10-24 03:51] LABS: BASOPHILS ABSOLUTE AUTO 0.03 K/mm3 (0.00-0.23); BASOPHILS PERCENT AUTO 0 % (0-2); EOSINOPHILS PERCENT AUTO 0 % (0-6); Hematocrit 41.1 % (37.0-53.0); Hemoglobin 14.4 g/dL (13.5-17.5); IMMATURE GRAN ABSOLUTE AUTO 0.37 K/mm3 (0.00-0.10); IMMATURE GRAN PERCENT AUTO 3 % (0-1); LYMPHOCYTES ABSOLUTE AUTO 0.54 K/mm3 (0.84-5.20); LYMPHOCYTES PERCENT AUTO 4 % (21-46); MONOCYTES ABSOLUTE AUTO 0.58 K/mm3 (0.16-1.47); MONOCYTES PERCENT AUTO 5 % (4-13); Mean Corpuscular HGB 30.1 pg (26.0-34.0); Mean Corpuscular Volume 86 fL (80-100); Mean Platelet Volume 10.7 fL (9.1-12.4); NEUTROPHILS ABSOLUTE AUTO 11.17 K/mm3 (1.96-9.15); NEUTROPHILS PERCENT AUTO 88 % (41-73); Platelet Count 203 K/mm3 (150-400); RDW Coefficient Variation 12.4 % (11.7-14.2); RDW Standard Deviation 38.9 fL (35.1-46.3); Red Blood Cell Count 4.78 M/mm3 (4.30-5.90); White Blood Cell Count 12.69 K/mm3 (4.00-11.30)
[2020-10-24 04:10] LABS: Alanine Aminotransfer (ALT/SGP 201 U/L (12-78); Albumin, Blood 2.2 g/dL (3.4-5.0); Albumin/Globulin Ratio 0.6 (0.8-1.8); Alk Phos 66 U/L (50-136); Anion Gap 7 mmol/L (6-16); Aspartate Aminotrans (AST/SGOT 55 U/L (12-37); Bilirubin, Total 0.8 mg/dL (0.1-1.0); Blood Urea Nitrogen 29 mg/dL (8-24); Bun/Creatinine Ratio 36.5 (12.0-20.0); CO2, Blood 24 mmol/L (21-32); Calcium, Blood 8.2 mg/dL (8.5-10.1); Chloride, Blood 105 mmol/L (98-108); Globulin, Blood 3.9 g/dL (2.2-4.0); Glomerular Filtration Rate >60 (60-); Glucose, Blood 213 mg/dL (70-99); Potassium, Blood 4.4 mmol/L (3.5-5.5); Sodium, Blood 136 mmol/L (136-145); Total Protein, Blood 6.1 g/dL (6.4-8.2)
--- NOTE | 2020-10-24 06:21 | NUR ---
SHIFT SUMMARY PT HAD GREAT SHIFT. SLEPT WELL. PT REMAINS ALERT AND ORIENTED. ABLE TO COMMUNICATE ALL NEEDS. GOOD APPETITE, TOLERATING PO. SKIN C/D/I. HR SR - SB RATES 50-70S. SBP WNL. PT ON AIRVO 45L/38%FI02 SATS >90%. PT STILL DYSPNEAIC WITH ACTIVITY BUT IS ABLE TO RECOVER QUICKLY. PT STILL HAS PRODUCTIVE COUGH, SCANT CLEARISH SPUTUM. PT INDEPENDENT IN BED AND IS ABLE TO CHANGE POSITIONS AND BED SETTINGS. PT STANDBY ASSIST TO TOILET. PT AFEBRILE, DENIES PAIN. CALL LIGHT REMAINS IN REACH. WILL REPORT TO ONCOMING SHIFT.
--- NOTE | 2020-10-24 08:00 | NUR ---
BEGINNING OF SHIFT Assumed care of pt at 0700. Report received from Wenceslao CLEMENTS. Pt A&O x 4. Answers questions. Follows commands. Verbalizes needs. Pleasant and cooperative with care. Pt repositions in bed independently. Pt mobilizes around room with SBA, mainly for management with cords and lines. Dyspnea with exertion. SpO2 drops to 86%-87% but recovers in less than a minute. Despite dyspnea, patient remains steady on feet. Lungs clear, dim in bases. Flutter valve and incentive spirometer at bedside. SR per monitor. BP stable. Pt on AirVO with 45 LPM and 38% FiO2. SpO2 90% or greater RA. Pt up to chair for breakfast.
--- NOTE | 2020-10-24 10:00 | NUR ---
Dr Francisco Conte in to see patient. Provider states he would like patient switched to nasal cannula. States goal for patient to discharge tomorrow or next day.
--- NOTE | 2020-10-24 12:00 | NUR ---
Patient placed on 8 LPM NC by RT Areli. Pt tolerating well. SpO2 mid-high 90s at rest and 90% with activity. Pt up to chair again for lunch.
--- NOTE | 2020-10-24 17:41 | NUR ---
SUMMARY Patient has sat up in chair for every meal. Using incentive spirometer and flutter valve independently, without promting. Patient is motivated and optimistic for going home tomorrow. Pt is now moving in room independently. Pt remains on 8 LPM with high-flow nasal cannula. SpO2 90%. SR per monitor. Monitor connected, despite DC tele order, for continued monitoring of SpO2. Will continue to closely monitor until care handoff and bedside report with oncoming RN.
--- NOTE | 2020-10-24 20:00 | NUR ---
ASSUMED PT CARE REPORT FROM JULIANNE CLEEMNTS AT 1918, ASSUMED PT CARE. PT ALERT AND ORIENTED. PLEASANT AND IN A GOOD MOOD. STATES HE HAD A GOOD DAY. PT USES CALL LIGHT APPROPRIATELY, INDEPENDENT IN ROOM. CALLS FOR ASSISTANCE TO COMMODE. PT HAS GOOD APPETITE, TOLERATES PO. TAKES PILLS WHOLE. SKIN C/D/I. ABD SOFT, NONTENDER. VOIDS PER URINAL. SL POWERGLIDE TO REGINA, FLUSHES WELL, DOES NOT DRAW. SEE FULL SHIFT ASSESSMENT.
[2020-10-25 03:48] LABS: BASOPHILS ABSOLUTE AUTO 0.03 K/mm3 (0.00-0.23); BASOPHILS PERCENT AUTO 0 % (0-2); EOSINOPHILS PERCENT AUTO 0 % (0-6); Hematocrit 42.2 % (37.0-53.0); Hemoglobin 14.3 g/dL (13.5-17.5); IMMATURE GRAN ABSOLUTE AUTO 0.24 K/mm3 (0.00-0.10); IMMATURE GRAN PERCENT AUTO 2 % (0-1); LYMPHOCYTES ABSOLUTE AUTO 0.57 K/mm3 (0.84-5.20); LYMPHOCYTES PERCENT AUTO 5 % (21-46); MONOCYTES ABSOLUTE AUTO 0.65 K/mm3 (0.16-1.47); MONOCYTES PERCENT AUTO 5 % (4-13); Mean Corpuscular HGB 29.7 pg (26.0-34.0); Mean Corpuscular HGB Conc 33.9 g/dL (31.5-36.5); Mean Corpuscular Volume 88 fL (80-100); Mean Platelet Volume 10.5 fL (9.1-12.4); NEUTROPHILS ABSOLUTE AUTO 10.51 K/mm3 (1.96-9.15); NEUTROPHILS PERCENT AUTO 88 % (41-73); Platelet Count 217 K/mm3 (150-400); RDW Coefficient Variation 12.7 % (11.7-14.2); RDW Standard Deviation 40.3 fL (35.1-46.3); Red Blood Cell Count 4.81 M/mm3 (4.30-5.90)
[2020-10-25 04:07] LABS: Alanine Aminotransfer (ALT/SGP 188 U/L (12-78); Albumin, Blood 2.2 g/dL (3.4-5.0); Albumin/Globulin Ratio 0.6 (0.8-1.8); Alk Phos 63 U/L (50-136); Anion Gap 7 mmol/L (6-16); Aspartate Aminotrans (AST/SGOT 54 U/L (12-37); Bilirubin, Total 0.8 mg/dL (0.1-1.0); Blood Urea Nitrogen 29 mg/dL (8-24); Bun/Creatinine Ratio 36.5 (12.0-20.0); CO2, Blood 23 mmol/L (21-32); Calcium, Blood 8.2 mg/dL (8.5-10.1); Chloride, Blood 104 mmol/L (98-108); Globulin, Blood 3.7 g/dL (2.2-4.0); Glomerular Filtration Rate >60 (60-); Glucose, Blood 191 mg/dL (70-99); Potassium, Blood 4.4 mmol/L (3.5-5.5); Sodium, Blood 134 mmol/L (136-145); Total Protein, Blood 5.9 g/dL (6.4-8.2)
--- NOTE | 2020-10-25 06:21 | NUR ---
SHIFT SUMMARY PT HAD GREAT SHIFT. REMAINED ALERT AND ORIENTED AND INDEPENDENT IN ROOM. PT ON 5L PER NC, SATS >92%. PT HR SB-SR. BP WNL. SKIN C/D/I. GREAT APPETITE. PT VERY MOTIVATED TO GO HOME. STATES HE WILL CHECK IS O2 SAT AND FOLLOW UP WITH PCP AND RETURN SHOULD HE FEEL WORSE. POWER GLIDE TO REGINA, FLUSHES WELL BUT DOES NOT DRAW. CALL [facility] IN [place]. WILL REPORT TO ONCOMING SHIFT.
--- NOTE | 2020-10-25 08:30 | NUR ---
PT UP TO CHAIR THIS AM FOR BREAKFAST. MOSTLY INDEP JUST NEEDS ASSISTANCE WITH LINES. GETS A LITTLE SOB WITH EXERTION BUT RECOVERS QUICKLY. ON 5L NC. DR. HAMMER IS IN TO SEE PT THIS AM AND IS PROBABLEY GOING TO DISCHARGE THE PT HOME TODAY. PT IS EXCITED TO HOPEFULLY GO HOME.
[2020-10-25] MEDS ORDERED: ACET325 PO (13:32)
[2020-10-25] MEDS ORDERED: GUAI600T33 PO (13:33)
[2020-10-25] MEDS ORDERED: FAMO20 PO (13:33)
[2020-10-25] MEDS ORDERED: HYDR10 PO (13:34)
[2020-10-25] MEDS ORDERED: OXYM.05NI (13:37)
[2020-10-25] MEDS ORDERED: Vitamin D2000 UNIT PO (13:37)
[2020-10-25] MEDS ORDERED: Prednisone10 MG PO (13:39)
--- NOTE | 2020-10-25 14:50 | NUR ---
PT DISCHARGED BY DR. HAMMER. PT WILL BE ON OXYGEN AT HOME AND ALREADY HAS TANKS AT HOME. ALSO HAS ONE WAITING IN THE CAR FOR HIS RIDE HOME. HERE TO TAKE HIM HOME. PT WHEELED TO CAR BY JUDY WITH 5L O2 AND ASSISTED IN CAR. NO SIGN OF DISTRESS.
== END 2020-10-25 14:50 | disposition home or self-care (01) | DRG 177 ==
LOC: ER 15:02 → MEDS 15:03 → ICUE 15:03 → MEDS 20:16 → ICUE 10-16 05:09
PROVIDERS: Emergency Medicine; Family Medicine; ADMIT Internal Medicine
PROC: XW033E5 Introduction of Remdesivir Anti-infective into Peripheral Vein, Percutaneous Approach, New Technology Group 5 (ICD-10-PCS; principal; 2020-10-14)
PROC: 8E0ZXY6 Isolation (ICD-10-PCS; 2020-10-14)
DX: U07.1 COVID-19 (principal); J12.89 Other viral pneumonia; J96.01 Acute respiratory failure with hypoxia; E11.9 Type 2 diabetes mellitus without complications; I10 Essential (primary) hypertension; E78.5 Hyperlipidemia, unspecified; N40.0 Benign prostatic hyperplasia without lower urinary tract symptoms; M10.9 Gout, unspecified; R74.01 Elevation of levels of liver transaminase levels; Z79.4 Long term (current) use of insulin; Z87.891 Personal history of nicotine dependence
CPT/HCPCS: 36415; 71045; 80048; 80053; 82947; 83735; 85025; 93005; 93010; 94660; 94667; 96365; 97110; 97116; 97162; 97166; 97530; 97535; 99285-25; A9270; A9270-GY; C1751; J0696; J1100; J1650; J2920; J7050; J7512

== ENCOUNTER → 2021-04-03 | Outpatient (CLI) | payer OTHER ==
[~2021-04-03] MED LIST changes: +ACET325 PO; +ACTOS30 MG PO; +ALLO300 PO; +AMLODIPINE BES2.5 MG PO; +ATOR40TA PO; +Calcium Carbon500 MG PO; +FAMO20 PO; +GUAI600T33 PO; +HYDR10 PO; +INSUGL100V SC; +LOSARTAN POTAS100 MG PO; +METFORMIN HCL500 M3 PO; +METFORMIN HCL500 MG PO; +METO100ER PO; +MONT10T PO; +Multivitamin1 EAC1 PO; +OXYM.05NI; +POTASSIUM PO; +Prednisone10 MG PO; +TAMSULOSIN HCL0.4 M1 PO; +Vitamin D2000 UNIT PO; +ZYRTEC10 M2 PO
[2021-04-04 18:47] LABS: Adenovirus F 40/41 Not Detected (NOT DETECT); Astrovirus Not Detected (NOT DETECT); Campylobacter Sp Not Detected (NOT DETECT); Cryptosporidium Not Detected (NOT DETECT); Cyclospora Cayetanensis Not Detected (NOT DETECT); E. Coli O157 Not Detected (NOT DETECT); Entamoeba Histolytica Not Detected (NOT DETECT); Enteroaggregative E. coli-EAEC Not Detected (NOT DETECT); Enteropathogenic E. coli-EPEC Not Detected (NOT DETECT); Enterotoxigenic E. coli-ETEC Not Detected (NOT DETECT); Giardia Lamblia Not Detected (NOT DETECT); Norovirus GI/GII Not Detected (NOT DETECT); Plesiomonas Shigelloides Not Detected (NOT DETECT); Rotavirus A Not Detected (NOT DETECT); Salmonella Sp Not Detected (NOT DETECT); Sapovirus Not Detected (NOT DETECT); Shiga Toxin-prod E. coli-STEC Not Detected (NOT DETECT); Shigella/Enteroin E. coli-EIEC Not Detected (NOT DETECT); Vibrio Cholerae Not Detected (NOT DETECT); Vibrio Sp Not Detected (NOT DETECT); Yersinia Enterocolitica Not Detected (NOT DETECT)
== END | disposition home or self-care (01) ==
LOC: LAB 09:30 → LAB SHORT 09:30
PROVIDERS: Physician Assistant Medical
DX: A09 Infectious gastroenteritis and colitis, unspecified (principal)
CPT/HCPCS: 0097U

== ENCOUNTER 2021-06-30 08:13 | Day surgery (SDC) | payer OTHER ==
[~2021-06-30] VITALS: Ht 180.3 cm; Wt 97.5 kg
[~2021-06-30 08:13] MED LIST changes: +GABA300 PO; +TADA10TA PO
--- NOTE | 2021-06-30 09:44 | NUR ---
Ambulatory in Day Surgery History, Chart, Medications and Allergies reviewed before start of procedure.Patient confirms NPO status and agrees with scheduled surgery. Pre-Op teaching done. Pt verbalizes understanding. Patient States Post-Procedure ride home has been arranged.
--- NOTE | 2021-06-30 13:58 | NUR ---
ARRIVED INTO STEP RECIEVED REPORT VSS. RECIEVED REPORT, DERMA BILLINGS IN PLACE TIMES 3 ABDOMEN.
--- NOTE | 2021-06-30 14:47 | NUR ---
Discharge instructions reviewed with patient. Patient verbalizes understanding. Copy given to patient to take home. Patient States Post-Procedure ride home has been arranged. Discharged via wheelchair to private car for ride home.
== END 2021-06-30 23:00 | disposition home or self-care (01) ==
LOC: ORSCMMR 08:13 → ORD 10:30 → ORSCMMR 23:00
PROVIDERS: Surgery
PROC: 0YU54JZ Supplement Right Inguinal Region with Synthetic Substitute, Percutaneous Endoscopic Approach (ICD-10-PCS; principal; 2021-06-30 10:30)
PROC: 8E0W4CZ Robotic Assisted Procedure of Trunk Region, Percutaneous Endoscopic Approach (ICD-10-PCS; principal; 2021-06-30 10:30)
DX: K40.91 Unilateral inguinal hernia, without obstruction or gangrene, recurrent (principal); I10 Essential (primary) hypertension; Z87.891 Personal history of nicotine dependence; Z79.899 Other long term (current) drug therapy; E11.9 Type 2 diabetes mellitus without complications; Z79.4 Long term (current) use of insulin
CPT/HCPCS: 49651; S2900; 82947; 88302; A9270; C1781; J0690; J1100; J2370; J2405; J2704; J3010; J7120

== ENCOUNTER → 2022-07-04 | Outpatient (CLI) | payer OTHER | END | disposition home or self-care (01) | LOC: LAB SHORT 07:45 → PLD 07:45 | DX: D48.5 Neoplasm of uncertain behavior of skin (principal) | CPT/HCPCS: 88305 ==

== ENCOUNTER 2023-09-10 06:56 | Day surgery (SDC) | payer OTHER ==
[~2023-09-10] VITALS: Ht 177 cm; Wt 93.1 kg
[2023-09-10] VITALS (14 sets, daily range): BP systolic 111–159; BP diastolic 51–109
[~2023-09-10 06:56] MED LIST changes: +BASAGLAR K100 UNIT/3 SC; +BASAGLAR K100 UNIT/6 SC; +IRON18 MG PO; +NEURONTIN300 MG PO; +Vitamin B Comple1 EA PO
[2023-09-10] MEDS ORDERED: POTASSIUM99 M3 PO (07:44)
[2023-09-10] MEDS ORDERED: Vitamin B Comple1 EA PO (07:45)
[2023-09-10] MEDS ORDERED: CALCIUM CARBON500 M4 PO (07:46)
--- NOTE | 2023-09-10 08:29 | NUR ---
History, Chart, Medications and Allergies reviewed before start of procedure. Ambulatory in Day Surgery. Pre-Op teaching done. Pt verbalizes understanding. Patient confirms NPO status and agrees with scheduled surgery. Lungs clear T/O to Auscultation. Patient reports completing Chlorhexadine shower X5 prior to admission to hospital. Surgical site prepped with 2% Chlorhexidine cloth wipe. Patient States Post-Procedure ride home has been arranged.
--- NOTE | 2023-09-10 09:37 | NUR ---
09/10/23 0937 Khloe Barrett SPINAL NERVE BLOCK COMPLETED BY DR COLE UPON ENTRY TO OR. PT TOLERATED WELL.
--- NOTE | 2023-09-10 14:10 | NUR ---
"Spiritual Care | Pt. request. Pt. is awake in bed and welcomes my visit. Pt. is pleasant. After introductions, facilitated a life review and rapport is established. Pt. displays evidence of being engaged and aware. Pt. did verbalize that his spouse is currently at urgent care. Pt. verbalized the need to relieve himself so this park interpretive specialist excused himself. Pt. verbalized gratitude for the spiritual care visit and welcomed this park interpretive specialist to return."
--- NOTE | 2023-09-10 19:11 | NUR ---
SHIFT SUMMARY NEW ADMIT TO UNIT FROM PACU POD [address] SOLER. ALERT AND ORIENTED, PLEASANT AND COOPERATIVE. SPINAL WORE OFF WELL. SBA UP TO TOILET AND RECLINER. WORKED WITH PHYSICAL THERAPY. TOLERATED ADA DIET AND LIQUIDS. SALINE LOCKED. VOIDING WELL. PAIN CONTROLLED PER EMAR. RIGHT KNEE WITH AQUACEL AND ROSALINDA WRAP C/D/I. BLOOD SUGAR COVERED PER EMAR. REPORT GIVEN TO FORWARDER OPERATOR RN'S.
[2023-09-11 00:19] VITALS: BP 138/62
[2023-09-11 04:16] VITALS: BP 139/76
[2023-09-11 04:37] LABS: BASOPHILS ABSOLUTE AUTO 0.02 K/mm3 (0.00-0.23); BASOPHILS PERCENT AUTO 0 % (0-2); EOSINOPHILS PERCENT AUTO 0 % (0-6); Hematocrit 38.9 % (37.0-53.0); Hemoglobin 13.5 g/dL (13.5-17.5); IMMATURE GRAN ABSOLUTE AUTO 0.08 K/mm3 (0.00-0.10); IMMATURE GRAN PERCENT AUTO 1 % (0-1); LYMPHOCYTES ABSOLUTE AUTO 1.36 K/mm3 (0.84-5.20); LYMPHOCYTES PERCENT AUTO 9 % (21-46); MONOCYTES ABSOLUTE AUTO 1.06 K/mm3 (0.16-1.47); MONOCYTES PERCENT AUTO 7 % (4-13); Mean Corpuscular HGB 30.5 pg (26.0-34.0); Mean Corpuscular HGB Conc 34.7 g/dL (31.5-36.5); Mean Corpuscular Volume 88 fL (80-100); Mean Platelet Volume 11.2 fL (9.1-12.4); NEUTROPHILS ABSOLUTE AUTO 13.18 K/mm3 (1.96-9.15); NEUTROPHILS PERCENT AUTO 84 % (41-73); Platelet Count 186 K/mm3 (150-400); RDW Standard Deviation 41.5 fL (35.1-46.3); Red Blood Cell Count 4.43 M/mm3 (4.30-5.90)
[2023-09-11 05:07] LABS: Bun/Creatinine Ratio 21.3 (12.0-20.0); Calcium, Blood 8.5 mg/dL (8.5-10.1); Creatinine, Blood 1.08 mg/dL (0.60-1.20); Potassium, Blood 3.8 mmol/L (3.5-5.5)
--- NOTE | 2023-09-11 05:19 | NUR ---
SHIFT SUMMARY NOC. PT POD 1 FOR RIGHT TOTAL KNEE WITH SPINAL BLOCK PERFORMED BY DR. SOLER. PT'S AQUACEL IS CLEAN, DRY, AND INTACT WITH POLAR PACK IN PLACE. PT AMBULATES WELL TO THE BR AND VOIDING URINE. A/O X4. PT'S PAIN CONTROLLED WITH SCHEDULED TYLENOL AND PT REPORTS RELIEF OF SX. PT RESTED WITH EYES CLOSED AND INTERMITTENTLY WAS AWAKE. CALL [facility] IN [place].
--- NOTE | 2023-09-11 07:33 | NUR ---
WORKING W/ ZOIE/THERAPY.
[2023-09-11 07:51] VITALS: BP 146/78
[2023-09-11] MEDS ORDERED: Percocet 5-3251 EACH PO (10:42)
[2023-09-11] MEDS ORDERED: ASPI81CH PO (10:43)
--- NOTE | 2023-09-11 11:15 | NUR ---
DISCHARGE NOTE: PATIENT WAS EDUCATED ON DISCHARGE INSTRUCTIONS. HE VERBALIZED UNDERSTANDING OF INSTRUCTIONS AND HAD NO FURTHER QUESTIONS AT THIS TIME. IV WAS TAKEN OUT AND WNL. HARD PERSCRIPTIONS WERE PLACED IN HIS DISCHARGE FOLDER. PAIN IS MANAGED WITH PO PAIN MEDS. HIS RIGHT KNEE HAS AN AQUACEL AND ROSALINDA WRAP THAT IS C/D/I. DENIES NUMBNESS OR TINGLING IN ALL EXTREMITIES. HE IS DRESSED AND HAS PERSONAL ITEMS IN THE ROOM GATHERED. HE IS TOLERATING PO INTAKE AND IS VOIDING. HE IS A SBA WITH FWW AND GAIT BELT. PATIENT IS BEING WHEELCHAIRED OUTSIDE TO HIS WIFES CAR TO BE TAKEN HOME.
== END 2023-09-11 11:13 | disposition home or self-care (01) ==
LOC: ORSCMMR 06:56 → ORD 08:15 → SURS 11:21 → ORD 12:30 → SURS 09-11 11:13 → ORSCMMR 09-11 11:13
PROVIDERS: Orthopaedic Surgery
PROC: 0SRC0JA Replacement of Right Knee Joint with Synthetic Substitute, Uncemented, Open Approach (ICD-10-PCS; principal; 2023-09-10 08:15)
DX: M17.11 Unilateral primary osteoarthritis, right knee (principal); I10 Essential (primary) hypertension; E78.5 Hyperlipidemia, unspecified; F32.A Depression, unspecified; E11.40 Type 2 diabetes mellitus with diabetic neuropathy, unspecified; Z79.899 Other long term (current) drug therapy; Z79.84 Long term (current) use of oral hypoglycemic drugs; Z79.4 Long term (current) use of insulin
CPT/HCPCS: 36415; 73560-RT; 80048; 82947; 85025; 97110; 97116; 97162; A9270; C1713; C1776; J0171; J0690; J0735; J1100; J1815; J1885; J2250; J2405; J2704; J2795; J3010; J7120